=== PATIENT | female | born 2000 | race Two or more races ===

== ENCOUNTER 2020-05-12 21:16 | Emergency (ER) | payer OTHER ==
--- NOTE | 2020-05-12 23:39 | ER Document Report ---
ED Medical Screen (RME) - General Chief Complaint: Abdominal Cramping Stated Complaint: CRAMPING,BLEEDING Time Seen by Provider: 05/12/20 23:35 Mode of Arrival: Ambulatory Information source: Patient Notes: Patient is a 19-year-old primigravida female coming in today with abdominal cramping and vaginal bleeding. She says that she was approximately 6 to 7 weeks along and is concerned that she has miscarried. Her pain has improved and her cramping is also improved. The bleeding is less than what it started a few days ago. General exam nontoxic appearing Abdomen nontender nondistended no CVA tenderness Cardiac regular rate and rhythm Pulmonary no distress I have greeted and performed a rapid initial assessment of this patient. A comprehensive ED assessment and evaluation of the patient, analysis of test results and completion of the medical decision making process will be conducted by additional ED providers. Physical Exam - Vital signs Vitals: Temp Pulse Resp BP Pulse Ox 98.0 F 64 16 147/79 H 100 05/12/20 21:51 05/12/20 21:51 05/12/20 21:51 05/12/20 21:51 05/12/20 21:51 Course - Vital Signs Vital signs: Temp Pulse Resp BP Pulse Ox 98.0 F 64 16 147/79 H 100 05/12/20 21:51 05/12/20 21:51 05/12/20 21:51 05/12/20 21:51 05/12/20 21:51
[2020-05-13 00:10] LABS: APPEARANCE,URINE CLEAR; BILIRUBIN,URINE NEGATIVE (NEGATIVE); COLOR,URINE STRAW; GLUCOSE, URINE NEGATIVE (NEGATIVE); KETONES,URINE NEGATIVE (NEGATIVE); PROTEIN,URINE NEGATIVE (NEGATIVE); URINE SPECIFIC GRAVITY 1.001; UROBILINOGEN,URINE NEGATIVE mg/dL (<2.0)
[2020-05-13 00:12] LABS: ABSOLUTE BASOPHILS # (AUTO) 0.1 10^3/uL (0.0-0.2); ABSOLUTE EOSINOPHILS # (AUTO) 0.1 10^3/uL (0.0-0.6); ABSOLUTE MONOCYTES (AUTO) 0.7 10^3/uL (0.1-1.4); ABSOLUTE NEUT (AUTO) 6.5 10^3/uL (1.7-8.2); BASOPHILS % (AUTO) 0.7 % (0-2); EOSINOPHILS % (AUTO) 1.2 % (0-6); HEMATOCRIT 38.1 % (36.0-47.0); HEMOGLOBIN 12.2 g/dL (12.0-15.5); LYMPHOCYTES % (AUTO) 28.9 % (13-45); MEAN CORPUSCULAR HEMOGLOBIN 24.4 pg (27.0-33.4); MEAN CORPUSCULAR VOLUME 76 fl (80-97); MONOCYTES % (AUTO) 6.6 % (3-13); PLATELET COUNT 402 10^3/uL (150-450); RED CELL DISTRIBUTION WIDTH 16.9 % (11.5-14.0); SEGMENTED NEUTROPHILS % (AUTO) 62.6 % (42-78); TOTAL CELLS COUNTED % (AUTO) 100 %; WHITE BLOOD COUNT 10.4 10^3/uL (4.0-10.5)
[2020-05-13 00:33] LABS: ALBUMIN 4.8 g/dL (3.7-5.6); ALKALINE PHOSPHATASE 78 U/L (50-135); ANION GAP 12 (5-19); ASPARTATE AMINO TRANSFERASE 18 U/L (5-30); BILIRUBIN,TOTAL 0.5 mg/dL (0.2-1.3); BLOOD UREA NITROGEN 11 mg/dL (7-20); CALCIUM 10.1 mg/dL (8.4-10.2); CARBON DIOXIDE 28 mmol/L (22-30); CHLORIDE 102 mmol/L (98-107); GLUCOSE 95 mg/dL (75-110); POTASSIUM 4.4 mmol/L (3.6-5.0)
--- NOTE | 2020-05-13 03:39 | RADIOLOGY REPORT (SQ) ---
EXAM DESCRIPTION: US TRANSVAGINAL COMPLETED DATE/TME: 05/13/2020 02:54 CLINICAL HISTORY: 19 years Female, 6-7 wks preg bleeding/cramping. 1720 COMPARISON: None. TECHNIQUE: Complete first trimester obstetrical ultrasound obtained with transvaginal imaging. FINDINGS: Uterus: The uterus measures 8.0 x 3.0 x 4.9 cm. No myometrial abnormalities. Endometrial thickness of 0.6 cm. Gestational sac: Not identified. pole: Not identified. heart motion: Not identified. Yolk sac: Not identified. Placenta: Not identified. Right ovary: The right ovary measures 2.8 x 1.5 x 3.2 cm. Left ovary: The left ovary measures 3.0 x 1.7 x 1.5 cm. Adnexa: No large adnexal masses. Free fluid: Trace free pelvic fluid. Duplex imaging: Color and spectral Doppler imaging demonstrates blood flow within the ovaries. IMPRESSION: 1. No intrauterine identified with trace free fluid in the pelvis. Differential considerations include early normal , ectopic , and miscarriage. Close continued clinical, laboratory, and sonographic follow-up recommended.
--- NOTE | 2020-05-13 05:50 | ER Document Report ---
ED General - General Chief Complaint: Vaginal Bleeding Stated Complaint: CRAMPING,BLEEDING Time Seen by Provider: 05/12/20 23:35 Mode of Arrival: Ambulatory - [facility] Notes: 19 year old female to the ED with C/O vag bleeding for the past 8 days. States that she thinks she is between 5-6 weeks . LMP was march 18. Admits to some pelvic cramping. This is her first . Denies any fevers, chills, chest pain, SOB, headache, or any other complaints. Does not have an OB. - Related Data Allergies/Adverse Reactions: No Known Allergies Allergy (Unverified 05/13/20 01:39) Past Medical History - General Information source: Patient - Social History Smoking Status: Never Smoker Frequency of alcohol use: None Drug Abuse: None Family History: Reviewed & Not Pertinent Review of Systems - Review of Systems Constitutional: denies: Chills, Fever EENT: No symptoms reported Cardiovascular: denies: Chest pain, Palpitations, Heart racing, Orthopnea, Dizziness, Lightheaded Respiratory: denies: Cough, Short of breath Gastrointestinal: Abdominal pain. denies: Diarrhea, Nausea, Vomiting Genitourinary: denies: Frequency, Flank pain, Hematuria Female Genitourinary: , Vaginal bleeding Musculoskeletal: No symptoms reported Skin: No symptoms reported Hematologic/Lymphatic: No symptoms reported Neurological/Psychological: No symptoms reported -: Yes All other systems reviewed and negative Physical Exam - Vital signs Vitals: Temp Pulse Resp BP Pulse Ox 98.0 F 64 16 147/79 H 100 05/12/20 21:51 05/12/20 21:51 05/12/20 21:51 05/12/20 21:51 05/12/20 21:51 Interpretation: Normal - General General appearance: Appears well, Alert In distress: None - HEENT Head: Normocephalic, Atraumatic Eyes: Normal Pupils: PERRL Neck: Normal, Supple - Respiratory Respiratory status: No respiratory distress Chest status: Nontender Breath sounds: Normal. No: Rales, Rhonchi, Wheezing Chest palpation: Normal - Cardiovascular Rhythm: Regular Heart sounds: Normal auscultation Murmur: No - Abdominal Inspection: Normal Distension: No distension Bowel sounds: Normal Tenderness: Nontender. 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 Beta quant is 39. Blood type is O+. There was not a gestational sac viewed on ultrasound. This could be 1 of 3 things stillearly , miscarriage, still possibility for ectopic. Have advised patient of this. Advised her to return in 2 days for repeat beta quant. I put her on pelvic rest. I encouraged her to return if she has any worsening symptoms. Encouraged her to use Tylenol for any cramping. Patient agrees with the plan. - Vital Signs Vital signs: Temp Pulse Resp BP Pulse Ox 98.4 F 64 15 112/72 99 05/13/20 06:38 05/13/20 06:38 05/13/20 06:38 05/13/20 06:38 05/13/20 06:38 - Laboratory Result Diagrams: 05/12/20 23:46 05/12/20 23:46 Laboratory results interpreted by me: 05/12/20 05/12/20 05/12/20 23:46 23:46 23:46 MCV 76 L MCH 24.4 L RDW 16.9 H Beta HCG, Quant 39.94 H Leukocyte Esterase Rfl SMALL H - Diagnostic Test Radiology reviewed: Image reviewed, Reports reviewed Discharge - Discharge Clinical Impression: Threatened miscarriage in early , Vaginal bleeding Condition: Stable Disposition: HOME, SELF-CARE
[2020-05-13 06:39] VITALS: BP 112/72
== END 2020-05-13 04:48 | disposition home or self-care (01) ==
LOC: ER 21:16
DX: O20.0 Threatened abortion (principal); O26.891 Other specified pregnancy related conditions, first trimester; R10.2 Pelvic and perineal pain; Z3A.01 Less than 8 weeks gestation of pregnancy
CPT/HCPCS: 36415; 76817; 80053; 81001; 84702; 85025; 86900; 86901; 93976; 99284

== ENCOUNTER 2020-05-15 14:11 | Emergency (ER) | payer OTHER ==
[2020-05-15] MEDS ORDERED: ACETAMINOPHEN 325 MG TABLET PO ONE (14:19)
--- NOTE | 2020-05-15 15:31 | ER Document Report ---
HPI - HPI Patient complains to provider of: Follow-up hCG Time Seen by Provider: 05/15/20 14:15 Pain Level: 3 Context: 19-year-old female with no previous medical problems presents to the emergency room for 2-day repeat hCG for questionable miscarriage. Patient was here on May 12 for heavy vaginal bleeding with passing of clots hCG at that time was 39.94. Ultrasound could not confirm an intrauterine . Patient states she has not had any bleeding since Tuesday and was told to return for repeat hCG. Patient was noted to have a fever during triage. Patient states she started with a subjective fever and a sore throat yesterday. Has been taking Tylenol with some relief. Last dose around 630 this morning. States is able to eat and drink but is painful to swallow. Handling her own secretions. No known ill contacts. No COVID-19 exposure. Associated Symptoms: Fever Exacerbated by: Other - Swallowing Relieved by: Denies Similar symptoms previously: No Recently seen / treated by doctor: Yes - [facility] 05/13/2020 - ROS Systems Reviewed and Negative: Yes All other systems reviewed and negative - CONSTITUTIONAL Constitutional: REPORTS: Fever, Chills - EENT EENT: REPORTS: Sore Throat - NEURO Neurology: DENIES: Headache, Weakness - RESPIRATORY Respiratory: DENIES: Trouble Breathing, Coughing - URINARY Urinary: DENIES: Dysuria, Urgency - REPRODUCTIVE LMP: mar 20 Reproductive: REPORTS: : - DERM Skin Color: Normal, [place] Skin Problems: None Past Medical History - General Information source: Patient - Social History Smoking Status: Never Smoker Frequency of alcohol use: None Drug Abuse: None Family History: Reviewed & Not Pertinent Vertical Provider Document - CONSTITUTIONAL Agree With Documented VS: Yes Exam Limitations: No Limitations General Appearance: Mild Distress Notes: VITAL SIGNS: Within normal limits. GENERAL: Mild acute distress, non-toxic appearance. HEAD: Normal with no signs of head trauma. EYES: PERRLA, EOMI, conjunctiva normal, no discharge. EARS: Hearing grossly intact. Tympanic membranes intact bilaterally without any erythema or bulging. Bilateral outer nails without erythema or swelling. NOSE: Normal. Turbinates are not erythematous, clear discharge is noted. Sinuses are nontender to palpation. THROAT: Oropharynx is normal. Positive for pharyngeal erythema with exudate and tonsillar enlargement NECK: Normal range of motion, no tenderness, supple, bilateral anterior cervical lymphadenopathy, no JVD. Negative Meningismus, Negative brudzzinski, Negative Kernig's CHEST: Clear breath sounds bilaterally. No wheezes, rales, or rhonchi. CARDIAC: Tachycardic,. S1 and S2, without murmurs, gallops, or rubs. VASCULAR: No Edema. Peripheral pulses normal and equal in all extremities. ABDOMEN: Normal and soft with no tenderness, no masses or pulsatile masses. GASTROINTESTINAL: Bowel sounds normal GENITOURINARY: Normal, No tenderness LYMPATHTIC: No lymphadenopathy noted. MUSCULOSKELETAL: Good range of motion of all major joints. Extremities without clubbing, cyanosis or edema. NEUROLOGICAL: Alert and oriented x 3. No focal sensory or strength deficits. Speech normal. Follows commands appropriately. PSYCHIATRIC: Normal Affect, judgement and mood. SKIN: Normal appearance with no rashes or lesions. - INFECTION CONTROL TRAVEL OUTSIDE OF THE [place] IN LAST 30 DAYS: No Course - Re-evaluation Re-evalutation: 05/15/20 15:34 Patient is resting comfortably fever improved. Still tachycardic but is not septic appearing. Patient states she has not had anything to drink since arrival to the emergency room. Reviewed hCG levels of 14.69. Counseled patient that is consistent with a miscarriage. Aware of negative strep. Will treat based on clinical presentation. She is encouraged on the importance to push fluids, continue with Tylenol and or Motrin for fevers. 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 Follow-up with a primary care physician if not improving in 2 to 3 days. Patient was given strict return to the emergency room guidelines. Return for any new or worsening symptoms. All questions were answered. Patient verbalized understanding and agrees with plan of care. 05/15/20 15:45 - Vital Signs Vital signs: Temp Pulse Resp BP Pulse Ox 103.1 F H 125 H 16 124/70 100 05/15/20 14:51 05/15/20 14:14 05/15/20 14:14 05/15/20 14:14 05/15/20 14:14 - Laboratory Laboratory results interpreted by me: 05/15/20 14:25 Beta HCG, Quant 14.69 H Discharge - Discharge Clinical Impression: Miscarriage Acute pharyngitis Qualifiers: Pharyngitis/tonsillitis etiology: unspecified etiology Qualified Code(s): J02.9 - Acute pharyngitis, unspecified Condition: Stable Disposition: HOME, SELF-CARE Instructions: Fever ([facility]), Miscarriage ([facility]), Sore Throat ([facility]) Additional Instructions: Push fluids, Tylenol and or Motrin as needed for fevers and pain. Outpatient follow-up with EDITORIAL CLERK as discussed. Follow-up with primary care physician if not improving in 2 to 3 days. Return to the emergency room for any new or worsening symptoms. Prescriptions: Amoxicillin 1 tab PO TID #30 tab Referrals: BRIANDA BERGER DO [NO LOCAL MD] - Follow up as needed
[2020-05-15 15:42] VITALS: BP 126/68
== END 2020-05-15 15:42 | disposition home or self-care (01) ==
LOC: ER 14:11
DX: O03.9 Complete or unspecified spontaneous abortion without complication (principal); J02.9 Acute pharyngitis, unspecified; R50.9 Fever, unspecified; J35.1 Hypertrophy of tonsils; R59.0 Localized enlarged lymph nodes; R00.0 Tachycardia, unspecified
CPT/HCPCS: 36415; 84702; 87070; 87077; 87880; 99283